=== PATIENT | female | born 1990 | race African-American/Black ===

== ENCOUNTER 2016-05-19 13:29 | Emergency (ER) | payer MEDICAID ==
[~2016-05-19] VITALS: Ht 195.6 cm; Wt 83.9 kg
--- NOTE | 2016-05-19 14:47 | Emergency Room Report ---
History of Present Illness General Chief Complaint: Toothache Present Illness HPI 26 YO female presents to the ED c/o pain, swelling, and erythema to the right upper jaw, and tooth pain with a broken tooth. x 5days. pain has progressed to 10/10 in severity. reports erythema of the gum where the tooth broke off. pt. denies hx of root canal in that tooth. She denies fevers or chills patient denies discharge or bleeding. Patient states that the tooth has been cracked for quite some time however last week for tooth broke off completely at the gumline. Patient states she does not currently have a dentist and like a referral. Patient reports throbbing pain that will exacerbate a headache denies sharp shooting electrical pains. Denies swollen tender lymph nodes. Denies CP, Palpitations, LOC, AMS, dizziness, Changes in Vision, Sensation, paresthesias, or a sudden severe headache. Allergies: Coded Allergies: HYDROCODONE (Verified Allergy, Unknown, 05/19/16) Patient History Past Medical History: see triage record Past Surgical History: none Pertinent Family History: none Last Menstrual Period: 05/05/16 Now: No : 3 Para: 1 Immunizations: UTD Reviewed Nursing Documentation: PMH: Agreed, PSxH: Agreed Review of Systems All Other Systems: negative except mentioned in HPI Physical Exam Vital Signs Date Time Temp Pulse Resp B/P Pulse Ox O2 Delivery O2 Flow Rate FiO2 05/19/16 14:08 98.1 65 18 111/75 100 Room Air Sp02 EP Interpretation: reviewed, normal General Appearance: no apparent distress, alert, GCS 15, non-toxic Head: normocephalic, atraumatic Eyes: bilateral eye PERRL, bilateral eye normal inspection ENT: hearing grossly normal, normal pharynx, no angioedema, normal voice, TMs + canals normal, uvula midline, moist mucus membranes, other - toothe # 18 is broken off at the gumline, erythema of the gum noted, and tenderness, no flucutance or abscess palpated. Neck: full range of motion, no meningismus, no bony tend, supple/symm/no masses Respiratory: lungs clear, normal breath sounds, speaking full sentences Cardiovascular #1: regular rate, rhythm, no edema Musculoskeletal: back normal, gait/station normal, normal range of motion, non- tender, no calf tenderness Neurologic: alert, oriented x3, responsive, motor strength/tone normal, sensory intact, speech normal Psychiatric: judgement/insight normal, memory normal, mood/affect normal, no suicidal/homicidal ideation Skin: normal color, no rash, warm/dry, well hydrated Lymphatic: no adenopathy Medical Decision Making PA Attestation Dr. Story is my supervising Physician whom patient management has been discussed with. Diagnostic Impression: Primary Impression: Acute pulpitis Additional Impression: Broken or cracked tooth, nontraumatic ER Course Pt. presents to the ED c/o pain, swelling, and erythema to the right upper jaw , and tooth pain with a broken tooth. x 5days. pain has progressed to 10/10 in severity. reports erythema of the gum where the tooth broke off. pt. denies hx of root canal in that tooth. Ddx considered but are not limited to cellulitis, dental abscess, pulpitis, orbital cellulitis, d/l tooth, dental pain. trigeminal neuralgia Vital signs: are WNL, pt. is afebrile H&PE are most consistent with acute pulpitis of tooth # 18, no fluctuance palpated on exam. ORDERS: none required at this time, the diagnosis is clinical ED INTERVENTIONS: -5mg [place] PO -d.w pt to follow up with Dentist. DISCHARGE: At this time pt. is stable for d/c to home. Will provide printed patient care instructions, and any necessary prescriptions. Care plan and follow up instructions have been discussed with the patient prior to discharge. Last Vital Signs Date Time Temp Pulse Resp B/P Pulse Ox O2 Delivery O2 Flow Rate FiO2 05/19/16 14:08 98.1 65 18 111/75 100 Room Air Disposition: HOME, SELF-CARE Condition: Stable Scripts Amoxicillin* (AMOXIL*) 500 Mg Capsule 500 MG ORAL BID for 7 Days, #14 CAP Prov: Fozia Gonzales P.AEric 05/19/16 Acetaminophen* (TYLENOL EXTRA STRENGTH*) 500 Mg Tablet 500 MG ORAL Q6H, #30 TAB 0 Refills Prov: Fozia Gonzales P.AEric 05/19/16 Referrals: HUMZA MUELLER,REFERRING (PCP) Patient Instructions: Dental Pain Additional Instructions: Take medications as directed. Follow up with PCP in 3-5 days Return sooner to ED if new symptoms occur, or current symptoms become worse. *!* Review provided list of free or reduced cost Dental clinics for follow up * !* - Please note that this Emergency Department Report was dictated using [employer] hardware salesperson technology software, occasionally this can lead to erroneous entry secondary to interpretation by the dictation equipment. Fozia Gonzales May 19, 2016 14:47
[2016-05-19] MEDS ORDERED: AMOXICILLIN500 MG ORAL (14:48)
[2016-05-19] MEDS ORDERED: TYLENOL EXTRA500 MG ORAL (14:48)
[2016-05-19 14:57] VITALS: BP 104/64
== END 2016-05-19 15:02 | disposition home or self-care (01) ==
LOC: EMR 14:33
DX: K04.01 Reversible pulpitis (principal); K03.81 Cracked tooth; Z88.6 Allergy status to analgesic agent
CPT/HCPCS: 99284